=== PATIENT | female | born 2000 | race Caucasian/White ===

== ENCOUNTER 2020-02-27 04:50 | Emergency (ER) | payer BC, OTHER ==
[~2020-02-27] VITALS: Ht 162.6 cm; Wt 48.9 kg
[2020-02-27 04:50] VITALS: BP 134/78
--- NOTE | 2020-02-27 05:23 | REPVR ---
PROCEDURE INFORMATION: Exam: CT Cervical Spine Without Contrast Exam date and time: 02/27/2020 5:03 AM Age: 19 years old Clinical indication: Neck pain; Additional info: [facility] TECHNIQUE: Imaging protocol: Computed tomography images of the cervical spine without contrast. Radiation optimization: All CT scans at this facility use at least one of these dose optimization techniques: automated exposure control; mA and/or kV adjustment per patient size (includes targeted exams where dose is matched to clinical indication); or iterative reconstruction. COMPARISON: No relevant prior studies available. FINDINGS: Vertebrae: No acute fracture. Normal alignment. C2-C3: No significant disc protrusion. No severe spinal canal stenosis. No significant neural foraminal narrowing. C3-C4: No significant disc protrusion. No severe spinal canal stenosis. No significant neural foraminal narrowing. C4-C5: No significant disc protrusion. No severe spinal canal stenosis. No significant neural foraminal narrowing. C5-C6: No significant disc protrusion. No severe spinal canal stenosis. No significant neural foraminal narrowing. C6-C7: No significant disc protrusion. No severe spinal canal stenosis. No significant neural foraminal narrowing. C7-T1: No significant disc protrusion. No severe spinal canal stenosis. No significant neural foraminal narrowing. Soft tissues: Unremarkable. Lungs: Lung apices are normal. IMPRESSION: No acute findings. Electronically signed by: Joe Morales On 02/27/2020 05:23:18 AM
--- NOTE | 2020-02-27 05:29 | REPVR ---
PROCEDURE INFORMATION: Exam: CT Head Without Contrast Exam date and time: 02/27/2020 5:03 AM Age: 19 years old Clinical indication: Injury or trauma; Fall; Initial encounter; Concussion / head injury; Consciousness not specified; Additional info: [facility] TECHNIQUE: Imaging protocol: Computed tomography of the head without contrast. Radiation optimization: All CT scans at this facility use at least one of these dose optimization techniques: automated exposure control; mA and/or kV adjustment per patient size (includes targeted exams where dose is matched to clinical indication); or iterative reconstruction. COMPARISON: No relevant prior studies available. FINDINGS: Brain: There is a 1.8 x 1.6 cm CSF density structure in the anterior left temporal fossa likely arachnoid cyst.. No hemorrhage. Unremarkable white matter. No mass effect. Ventricles: Normal. No ventriculomegaly. Bones/joints: Unremarkable. No acute fracture. Sinuses: Visualized sinuses are unremarkable. No fluid levels. Mastoid air cells: Visualized mastoid air cells are well aerated. Soft tissues: Unremarkable. IMPRESSION: No CT evidence of acute intracranial hemorrhage, mass effect or midline shift. 1.8 x 1.6 cm anterior left temporal fossa arachnoid cyst. Electronically signed by: Joe Morales On 02/27/2020 05:29:28 AM
[2020-02-27] MEDS ORDERED: ACETAMINOPHEN TAB 650MG DOSE (2X325MG) PO ONE (06:15)
== END 2020-02-27 06:30 | disposition home or self-care (01) ==
LOC: M ED 04:50
DX: S00.03XA Contusion of scalp, initial encounter (principal); S00.01XA Abrasion of scalp, initial encounter; W10.9XXA Fall (on) (from) unspecified stairs and steps, initial encounter; Y92.9 Unspecified place or not applicable; F17.200 Nicotine dependence, unspecified, uncomplicated

== ENCOUNTER → 2020-11-02 | Outpatient (REF) | payer SELFPAY | LOC: M LABSMTC 13:39 → EDSTATUS 13:40 → M LABSMTC 15:13 | PROVIDERS: ATTEND Pediatrics | DX: Z20.822 Contact with and (suspected) exposure to COVID-19 (principal) ==

== ENCOUNTER 2025-06-24 08:27 | Emergency (ER) | payer OTHER, SELFPAY ==
[~2025-06-24] VITALS: Ht 162.6 cm; Wt 59.8 kg
[2025-06-24] MEDS ORDERED: IBUP-1114 PO (08:39)
[2025-06-24 09:52] VITALS: BP 118/61; TEMP 98.5; O2SAT 98
== END 2025-06-24 09:59 | disposition home or self-care (01) ==
LOC: M ED 08:27
DX: S06.0X9A Concussion with loss of consciousness of unspecified duration, initial encounter (principal); Y04.8XXA Assault by other bodily force, initial encounter; Y92.481 Parking lot as the place of occurrence of the external cause; Y93.9 Activity, unspecified; Y99.9 Unspecified external cause status

== ENCOUNTER 2025-06-27 08:20 | Emergency (ER) | payer OTHER ==
[~2025-06-27] VITALS: Ht 165.1 cm; Wt 60.8 kg
[~2025-06-27 08:20] MED LIST: IBUP-1114 PO
[2025-06-27] MEDS ORDERED: NS (Normal Saline) 0.9% 1,000 ML IV ONE (10:15)
[2025-06-27] MEDS ORDERED: dexAMETHasone 4 MG/ML 1 ML VIAL IV ONE (10:15)
[2025-06-27] MEDS ORDERED: diphenhydrAMINE 50 MG/ML VIAL IV ONE (10:15)
[2025-06-27] MEDS ORDERED: KETOROLAC 30 MG/ML 1 ML VIAL IV ONE (10:15)
[2025-06-27] MEDS: ACETAMINOPHEN 500 MG TAB PO ONE (10:35)
[2025-06-27 12:21] VITALS: BP 108/67; TEMP 97.3; O2SAT 100
== END 2025-06-27 12:24 | disposition home or self-care (01) ==
LOC: M ED 08:20
DX: F07.81 Postconcussional syndrome (principal)